=== PATIENT | female | born 1955 | race Caucasian/White ===

== ENCOUNTER 2017-02-13 14:05 | Day surgery (SDC) | payer OTHER, SELFPAY ==
[~2017-02-13] VITALS: Ht 157.5 cm; Wt 74.1 kg
[~2017-02-13 14:05] MED LIST: ALUMAG30SU PO; Acidophilus La100 GM PO; CETI5 PO; HYDACE5 PO; Milk Of Ma400 MG/5 M PO; NAPR550 PO; ROXICODONE5 MG PO; SACC250C; TYLENOL SINUS1 EAC2 PO
--- NOTE | 2017-02-13 16:19 | NUR ---
02/13/17 1619 Fuad Chavez LATE ENTRY 7165 DR ARAUJO INFORMED OF PT'S HR BEING 42BPM ON 3 LEAD EKG. PT IS ASYMPTOMATIC AT THIS TIME. PT REPORTS HAVING LOW HR NORMALLY. DR ARAUJO REQUESTS DR MOLINA TO REVIEW PT. 12 LEAK EKG ORDERED BY DR MOLINA AFTER DR MOLINA REVIEWED CHART.
--- NOTE | 2017-02-13 17:12 | NUR ---
02/13/17 1712 Fuad Chavez PULSE REMAINED IN 60'S DURING PROCEDURE. POST OP PULSE 56. PT ADVISED PER DR ARAUJO TO CONSULT WITH PRIMARY CARE REGARDING LOW PULSE IN PRE OP TODAY.
[2017-09-21] MEDS ORDERED: FLONASE ALLERG9.9 ML (08:08)
[2018-01-03] MEDS ORDERED: Percocet 5-3251 EACH PO (16:43)
[2018-01-03] MEDS ORDERED: Cyclobenzaprine5 MG PO (16:43)
== END 2017-02-13 16:50 | disposition home or self-care (01) ==
LOC: ORSCSDS 14:05
PROVIDERS: Internal Medicine Gastroenterology
PROC: 0DBE8ZX Excision of Large Intestine, Via Natural or Artificial Opening Endoscopic, Diagnostic (ICD-10-PCS; principal; 2017-02-13 15:15)
PROC: 0DBN8ZX Excision of Sigmoid Colon, Via Natural or Artificial Opening Endoscopic, Diagnostic (ICD-10-PCS; principal; 2017-02-13 15:15)
DX: Z12.11 Encounter for screening for malignant neoplasm of colon (principal); K57.30 Diverticulosis of large intestine without perforation or abscess without bleeding; Z85.038 Personal history of other malignant neoplasm of large intestine; Z80.0 Family history of malignant neoplasm of digestive organs; Z79.899 Other long term (current) drug therapy
CPT/HCPCS: 88305; 93005; 93010; J7120

== ENCOUNTER → 2017-03-20 | Outpatient (CLI) | payer OTHER, SELFPAY ==
[~2017-03-20] MED LIST changes: +Cyclobenzaprine5 MG PO; +FLONASE ALLERG9.9 ML; +Percocet 5-3251 EACH PO
== END | disposition home or self-care (01) ==
LOC: LAB SHORT 13:18 → PLD 13:18
DX: N85.00 Endometrial hyperplasia, unspecified (principal)
CPT/HCPCS: 88305

== ENCOUNTER 2017-09-21 07:28 | Day surgery (SDC) | payer OTHER ==
[~2017-09-21] VITALS: Ht 157.5 cm; Wt 80.6 kg
[~2017-09-21 07:28] MED LIST changes: -Cyclobenzaprine5 MG PO; -FLONASE ALLERG9.9 ML; -Percocet 5-3251 EACH PO
[2017-09-21] MEDS ORDERED: CETI5 PO (08:07)
[2017-09-21] MEDS ORDERED: FLONASE ALLERG9.9 ML (08:08)
== END 2017-09-21 10:20 | disposition home or self-care (01) ==
LOC: ORSCSDS 07:28
PROVIDERS: Obstetrics & Gynecology
PROC: 0UDB8ZX Extraction of Endometrium, Via Natural or Artificial Opening Endoscopic, Diagnostic (ICD-10-PCS; principal; 2017-09-21 08:30)
DX: N85.00 Endometrial hyperplasia, unspecified (principal); N71.1 Chronic inflammatory disease of uterus
CPT/HCPCS: 88305; J1100; J2250; J2405; J3010; J7120

== ENCOUNTER 2018-09-20 20:41 | Emergency (ER) | payer MEDICARE, BC ==
[~2018-09-20] VITALS: Ht 157.5 cm; Wt 72.6 kg
[~2018-09-20 20:41] MED LIST changes: +Cyclobenzaprine5 MG PO; +FLONASE ALLERG9.9 ML; +Percocet 5-3251 EACH PO
[2018-09-20] MEDS ORDERED: HYDR1TAB94 PO (21:52)
== END 2018-09-20 21:57 | disposition home or self-care (01) ==
LOC: ER 20:41
DX: S52.571A Other intraarticular fracture of lower end of right radius, initial encounter for closed fracture (principal); W01.198A Fall on same level from slipping, tripping and stumbling with subsequent striking against other object, initial encounter; Z88.6 Allergy status to analgesic agent; Z88.8 Allergy status to other drugs, medicaments and biological substances; Z88.5 Allergy status to narcotic agent; Z79.899 Other long term (current) drug therapy; Z85.038 Personal history of other malignant neoplasm of large intestine
CPT/HCPCS: 73110; 99283-25

== ENCOUNTER 2018-09-26 14:42 | Day surgery (SDC) | payer MEDICARE, BC ==
[~2018-09-26] VITALS: Ht 157.5 cm; Wt 71.8 kg
[~2018-09-26 14:42] MED LIST changes: +HYDR1TAB94 PO
--- NOTE | 2018-09-26 15:24 | NUR ---
Ambulatory in Day Surgery History, Chart, Medications and Allergies reviewed before start of procedure.Lungs clear T/O to Auscultation. Patient confirms NPO status and agrees with scheduled surgery.SPLINT IN PLACE TO RIGHT ARM. PT DENIES DELGADO AT THIS TIME.
--- NOTE | 2018-09-26 17:26 | NUR ---
PT PREPARED FOR OR IN [facility]. TO ROOM 214 DUE TO DELAY IN OR. REPORT GIVEN TO CELINE SANCHEZ.
--- NOTE | 2018-09-26 18:00 | NUR ---
PREOP: PT TO ROOM 214 AT THIS TIME TO AWAIT SURGERY. PT A+O. DENIES PAIN. ICE PACK TO RIGHT WRIST. DAUGHTER AT BEDSIDE. PT STATES SHE HAS BEEN NPO. CALL LIGHT PLACED IN REACH. INSTRUCTED TO CALL FOR ANY NEEDS. PT HAS BEEN UP TO BATHROOM WITH MIN ASSIST.
--- NOTE | 2018-09-26 18:59 | NUR ---
SURGERY: PT TO OR AT THIS TIME. TAKEN VIA WHEELCHAIR WITH SHELL PRESS OPERATOR.
--- NOTE | 2018-09-26 22:00 | NUR ---
RECEIVED HAND OFF FROM Effie LOPEZ RN USING SBAR. TRANSPORTED TO ROOM VIA STRETCHER, TRANSFERED TO BED WITH STANDBY ASSIST. SITTING UP IN BED WITH RIGHT ARM PROPPED ON A PILLOW. EMILE WRAP IN PLACE, GOOD DISTAL PULSES. VSS, NAD NOTED. AAO X3, SAUCEDA, FOLLOWS ALL COMMANDS. REORIENTED TO ROOM, CALL SYSTEM, AND POC, VOICES UNDERSTANDING. RESPIRATIONS EVEN AND UNLABORED ON ROOM AIR. LUNG SOUNDS CLEAR BILATERALLY. ABDOMEN SOFT AND NONDISTENDED. HYPOACTIVE BOWEL SOUNDS PRESENT IN ALL QUADS. RATES PAIN CURRENTLY AT 6/10, STATES THAT SHE FEELS VERY RELAXED. ACCEPTS OFFERED ICE PACK FOR FURTHER RELIEF. DAUGHTER AT BEDSIDE. DENEIS FURTHER NEEDS AT THIS TIME. SAFETY MEASURES IN PLACE. WILL CONTINUE TO MONITOR.
[2018-09-26] MEDS ORDERED: HYDR1TAB94 PO (23:43)
--- NOTE | 2018-09-26 23:55 | NUR ---
DISCHARGE PAPERS GIVEN AND ALL PERSONAL BELONINGS GATHERED AND TAKEN WITH PT WHO AMBULATED OUT OF HOSPITAL AFTER VOICING UNDERSTANDING AND SIGNED RECEIPT FOR CARE INSTRUCTIONS GIVEN VERBALLY AND IN WRITTING.
--- NOTE | 2018-09-27 09:54 | NUR ---
09/27/18 0954 Shayy Cespedes DISCUSSED TIMES WITH MIKAELA BERGER.
== END 2018-09-26 23:54 | disposition home or self-care (01) ==
LOC: ORSCMMR 14:42 → SURS 17:30 → ORSCMMR 17:30 → ICUE 21:57 → SURS 21:57 → ICUE 21:59 → SURS 22:02 → ORSCMMR 23:54 → SURS 23:54
PROVIDERS: Orthopaedic Surgery
PROC: 0PSH04Z Reposition Right Radius with Internal Fixation Device, Open Approach (ICD-10-PCS; principal; 2018-09-26 16:30)
DX: S52.571A Other intraarticular fracture of lower end of right radius, initial encounter for closed fracture (principal); J45.909 Unspecified asthma, uncomplicated; Z79.899 Other long term (current) drug therapy
CPT/HCPCS: A9270-GY; C1713; J0690; J1100; J1170; J2250; J2405; J2704; J3010; J7120

== ENCOUNTER → 2019-03-18 | Outpatient (CLI) | payer MEDICARE, BC ==
[~2019-03-18] MED LIST changes: +ASPIR 8181 MG PO; +ONDA4 PO
== END | disposition home or self-care (01) ==
LOC: LAB SHORT 10:58 → LAB 10:58
DX: Z01.812 Encounter for preprocedural laboratory examination (principal); M17.11 Unilateral primary osteoarthritis, right knee
CPT/HCPCS: 36415; 86850; 86900; 86901

== ENCOUNTER 2019-03-19 06:33 | Day surgery (SDC) | payer MEDICARE, BC ==
[~2019-03-19] VITALS: Ht 157.5 cm; Wt 72.6 kg
[~2019-03-19 06:33] MED LIST changes: -ASPIR 8181 MG PO; -ONDA4 PO
--- NOTE | 2019-03-19 07:20 | NUR ---
PATIENT REFUSES OXYCONTIN AT THIS TIME, STATES DIDN'T NEED IT WITH HER ANKLE SURGERY, DR SWENSON AWARE. CLARIFIED NSAID ALLERGY WITH DR SWENSON, WILL LEAVE TORADOL OUT OF PERIARTICULAR INJECTION. PATIENT STATES SHE ONLY HAS HIVES WITH MULTIPLE DOSES OF NSAIDs AND THAT DR SWENSON DID A TRIAL ASA 81 MG PO DOSING WITH HER PRESURGICALLY AND SHE DID WELL, NO PROBLEMS.
--- NOTE | 2019-03-19 07:56 | NUR ---
History, Chart, Medications and Allergies reviewed before start of procedure. Patient confirms NPO status and agrees with scheduled surgery. Patient reports completing Chlorhexadine shower X2 prior to admission to hospital. Surgical site prepped with 2% Chlorhexidine cloth wipe. Pre-Op teaching done. Pt verbalizes understanding. Lungs clear T/O to Auscultation. PATIENT BELONGING IN BAGS UNDER GURNEY.
--- NOTE | 2019-03-19 08:09 | NUR ---
ASSUMED CARE OF PATIENT. HAS CALL LIGHT AND VISITORS AT BEDSIDE WHILE WAITING FOR SURGERY TIME.
--- NOTE | 2019-03-19 16:14 | NUR ---
PT CARB COUNT DOSING SCHEDULE 9501-7247: 1 UNIT PER 12 CARBS [id number]: 1 UNIT PER 18 CARBS [id number]-[id number]: 1 UNIT PER 14 CARBS
--- NOTE | 2019-03-19 16:23 | NUR ---
pt working w/therapy
--- NOTE | 2019-03-19 16:30 | NUR ---
PT AMBULATING IN [facility] W/THERAPY
--- NOTE | 2019-03-19 17:37 | NUR ---
SUMMARY POD 0 FOR R TKA. PT TOLERATING PO. WORKED W/THERAPY. VOIDED TWICE. MEDICATED PER ORDERS FOR PAIN. EMILE WRAP TO RLE CDI. PT EATING DINNER AT THIS TIME. CALL LIGHT IN REACH.
[2019-03-20 04:01] LABS: BASOPHILS ABSOLUTE AUTO 0.01 K/mm3 (0.00-0.23); BASOPHILS PERCENT AUTO 0 % (0-2); EOSINOPHILS ABSOLUTE AUTO 0.01 K/mm3 (0.00-0.68); EOSINOPHILS PERCENT AUTO 0 % (0-6); Hematocrit 36.7 % (33.0-51.0); Hemoglobin 12.1 g/dL (11.5-16.0); IMMATURE GRAN ABSOLUTE AUTO 0.03 K/mm3 (0.00-0.10); IMMATURE GRAN PERCENT AUTO 0 % (0-1); LYMPHOCYTES ABSOLUTE AUTO 1.32 K/mm3 (0.84-5.20); LYMPHOCYTES PERCENT AUTO 12 % (21-46); MONOCYTES ABSOLUTE AUTO 0.87 K/mm3 (0.16-1.47); MONOCYTES PERCENT AUTO 8 % (4-13); Mean Corpuscular HGB 31.1 pg (26.0-34.0); Mean Corpuscular Volume 94 fL (80-100); Mean Platelet Volume 10.7 fL (9.1-12.4); NEUTROPHILS ABSOLUTE AUTO 8.49 K/mm3 (1.96-9.15); NEUTROPHILS PERCENT AUTO 79 % (41-73); Platelet Count 169 K/mm3 (150-400); RDW Coefficient Variation 12.1 % (11.7-14.2); RDW Standard Deviation 42.5 fL (35.1-46.3); Red Blood Cell Count 3.89 M/mm3 (3.80-5.20); White Blood Cell Count 10.73 K/mm3 (4.00-11.30)
--- NOTE | 2019-03-20 04:14 | NUR ---
SHIFT SUMMARY POD 1 R TKA PT AA0X4 VSS, BP WAS SLIGHTLY ELEVATED BUT LOWER WITH AM VITALS. PT HAS BEEN UP AND AMBULATING TOLERATING WELL. PT VOIDING. TOLERATING PO WELL, PAIN MANAGED PER EMAR. AQUACEL CDI ON PT. NO NAUSEA OR VOMITING.
[2019-03-20 04:17] LABS: Anion Gap 5 mmol/L (6-16); Blood Urea Nitrogen 12 mg/dL (8-24); Bun/Creatinine Ratio 17.9 (12.0-20.0); CO2, Blood 26 mmol/L (21-32); Chloride, Blood 104 mmol/L (98-108); Creatinine, Blood 0.67 mg/dL (0.40-1.00); Glomerular Filtration Rate >60 (60-); Glucose, Blood 124 mg/dL (70-99); Potassium, Blood 4.3 mmol/L (3.5-5.5); Sodium, Blood 135 mmol/L (136-145)
[2019-03-20] MEDS ORDERED: ONDA4 PO (08:27)
[2019-03-20] MEDS ORDERED: Percocet 5-3251 EACH PO (08:28)
[2019-03-20] MEDS ORDERED: ASPIR 8181 MG PO (08:28)
--- NOTE | 2019-03-20 10:52 | NUR ---
DISCHARGE: PT EATING AND DRINKING, VOIDING, PASSING GAS. PT REPORTS PAIN CONTROLLED ON PO PAIN MEDICATION. PT CLEARED BY THERAPY TO GO HOME, REPORTS HAVING APPR EQUIP AT HOME. PT/FAMILY REPORTS UNDERSTANDING OF DISCHARGE INSTRUCTIONS INCLUDING POLAR PAC AND DRESSING CHANGES. PT IV OUT. PT SENT WITH DRESSING SUPPLIES AND POLAR PAC.
== END 2019-03-20 11:00 | disposition home or self-care (01) ==
LOC: ORSCMMR 06:33 → ORD 08:15 → SURS 12:05 → ORSCMMR 03-20 11:00
PROVIDERS: Orthopaedic Surgery
PROC: 0SRC0J9 Replacement of Right Knee Joint with Synthetic Substitute, Cemented, Open Approach (ICD-10-PCS; principal; 2019-03-19 08:15)
DX: M17.11 Unilateral primary osteoarthritis, right knee (principal); Z01.818 Encounter for other preprocedural examination
CPT/HCPCS: 36415; 73560-RT; 80048; 85025; 86850; 86900; 86901; 88300; 97110; 97116; 97162; C1713; C1776; J0171; J0690; J0735; J1100; J1170; J2250; J2405; J2704; J2795; J3010; J7050; J7120

== ENCOUNTER 2019-11-15 08:45 | Day surgery (SDC) | payer MEDICARE, BC ==
[~2019-11-15 08:45] MED LIST changes: +ASPIR 8181 MG PO; +ONDA4 PO
== END 2019-11-15 22:35 | disposition home or self-care (01) ==
LOC: MOI US 08:45 → MOI MAM 09:00 → MOI US 09:00
DX: D24.1 Benign neoplasm of right breast (principal)
CPT/HCPCS: 19083; 77065; A4648; G0279

== ENCOUNTER 2019-12-13 07:16 | Day surgery (SDC) | payer MEDICARE, BC | END 2019-12-13 22:50 | disposition home or self-care (01) | LOC: MOI US 07:16 | DX: D24.1 Benign neoplasm of right breast (principal) ==

== ENCOUNTER 2019-12-13 09:10 | Day surgery (SDC) | payer MEDICARE, BC ==
[~2019-12-13] VITALS: Ht 157.5 cm; Wt 74.5 kg
[~2019-12-13 09:10] MED LIST changes: +FLUT.05NI; +ZYRTEC10 M2 PO
--- NOTE | 2019-12-13 12:04 | NUR ---
PT MEETS CRITERIA FOR D/C. Patient up to Ambulate independently. Gait steady. Discharge instructions reviewed with patient. Patient verbalizes understanding. Copy given to patient to take hOME. Discharged via wheelchair to private car for ride home.
== END 2019-12-13 22:50 | disposition home or self-care (01) ==
LOC: ORSCMMR 09:10 → ORD 10:00 → ORSCMMR 22:50
PROVIDERS: Surgery
PROC: 0HBT0ZX Excision of Right Breast, Open Approach, Diagnostic (ICD-10-PCS; principal; 2019-12-13 10:00)
DX: D24.1 Benign neoplasm of right breast (principal)
CPT/HCPCS: A9270-GY; J0690; J1100; J2250; J2405; J2704; J3010; J7120

== ENCOUNTER 2020-02-18 06:50 | Day surgery (SDC) | payer MEDICARE, BC ==
[~2020-02-18] VITALS: Ht 157.5 cm; Wt 76.8 kg
[2020-02-18] MEDS ORDERED: Percocet 5-3251 EACH PO (14:49)
[2020-02-18] MEDS ORDERED: ONDA4 PO (14:51)
[2020-02-18] MEDS ORDERED: XARELTO10 M1 PO (14:52)
--- NOTE | 2020-02-18 16:01 | NUR ---
DISCHARGE PT HAS CLEARED THERAPY, EATING, DRINKING, AND VOIDING WELL. PAIN WELL MANAGED. SCRIPTS, POLAR PACK, & DRSGS SENT.
== END 2020-02-18 15:40 | disposition home or self-care (01) ==
LOC: ORSCMMR 06:50 → ORD 08:15 → ORSCMMR 08:15 → SURS 11:07 → ORSCMMR 15:40
PROVIDERS: Orthopaedic Surgery
PROC: 8E0Y0CZ Robotic Assisted Procedure of Lower Extremity, Open Approach (ICD-10-PCS; principal; 2020-02-18 08:15)
PROC: 0SRD0JA Replacement of Left Knee Joint with Synthetic Substitute, Uncemented, Open Approach (ICD-10-PCS; principal; 2020-02-18 08:15)
DX: M17.12 Unilateral primary osteoarthritis, left knee (principal); J45.909 Unspecified asthma, uncomplicated; Z79.899 Other long term (current) drug therapy
CPT/HCPCS: 27447; S2900; 73560-LT; 88300; 97110; 97116; 97162; A9270; C1776; J0171; J0690; J0735; J1100; J1885; J2250; J2370; J2405; J2704; J2795; J3010; J7120